=== PATIENT | female | born 1930 | race Caucasian/White ===

== ENCOUNTER 2016-07-16 17:48 | Inpatient (IN) ==
--- NOTE | 2016-07-16 18:07 | Emergency Department Note ---
Abdominal Pain HPI - General Chief Complaint: Abdominal Pain Stated Complaint: Abdominal pain Time Seen by Provider: 07/16/16 18:02 Source: patient Mode of arrival: ambulatory Limitations: no limitations - History of Present Illness HPI Narrative: This patient has had abdominal pain for the last 24 hours. It is very sharp and painful through the night but that has improved somewhat she wonders if she is constipated. No nausea or vomiting and doesn't feel any pain in her back. MD Complaint: abdominal pain Onset (ago): hour(s) Consistency: intermittent Location: RUQ, epigastric Severity: moderate Quality: cramping, stabbing Radiation: none Migration to: no migration Improves with: nothing Worsens with: nothing - Related Data Home Medications Medication Instructions Recorded Confirmed Unobtainable [Unobtainable] 07/16/16 07/16/16 Allergies Allergy/AdvReac Type Severity Reaction Status Date / Time No Known Intolerances Allergy Unknown N/A Verified 07/16/16 17:51 Review of Systems Constitutional: Denies: fever Eyes: Denies: eye pain ENT ED: Denies: ear pain Cardiovascular: Denies: chest pain Respiratory: Denies: cough Gastrointestinal: Reports: abdominal pain, constipation. Denies: nausea, vomiting, diarrhea Genitourinary: Denies: urgency Musculoskeletal: Denies: back pain Integumentary: Denies: rash Neurological: Denies: headache Abdominal Pain PMH - Past Medical History Medical history: Reports: hypertension Surgical history ED: Reports: hip replacement Physical Exam - General Limitations: no limitations General appearance: alert - Head Head exam: atraumatic - Eye Eye exam: Present: normal appearance - ENT ENT exam: normal exam - Neck Neck exam: Present: normal inspection - Chest Chest inspection: Present: normal inspection - Respiratory Respiratory exam: Present: normal lung sounds bilaterally - Cardiovascular Cardiovascular exam: Present: regular rate, normal rhythm, normal heart sounds - Abdominal Exam Abdominal exam: Present: tenderness, hypoactive bowel sounds. Absent: soft, distention, guarding, rebound, rigidity Abdominal tenderness: Present: RUQ, epigastrium - Neurological Exam Neurological exam: Present: alert - Psychiatric Psychiatric exam: Present: normal affect - Skin Skin exam: Present: warm, dry Course Vital Signs Temperature 98.2 F 07/16/16 17:48 Pulse Rate 107 H 07/16/16 17:48 Respiratory Rate 20 07/16/16 17:48 Blood Pressure 112/68 07/16/16 17:48 Pulse Oximetry (%) 95 07/16/16 17:48 Temperature 98.2 F 07/16/16 17:48 Pulse Rate 94 H 07/16/16 20:04 Respiratory Rate 20 07/16/16 17:48 Blood Pressure 134/53 07/16/16 20:04 Pulse Oximetry (%) 93 07/16/16 20:04 Abdominal Pain - MDM Narrative Medical decision making narrative: I discussed the case with Dr. Vick and she will be admitted to the hospital and treated with Zosyn - Lab Data Lab results reviewed: Yes I reviewed the patient's lab results. Result diagrams: 07/16/16 18:31 07/16/16 18:31 Lab Results 07/16/16 07/16/16 07/16/16 Range/Units 18:17 18:31 18:31 WBC 19.3 H (4.5-11.0) K/mcL RBC 4.74 (4.00-5.20) M/mcL Hgb 12.7 (12.0-15.0) g/dL Hct 39.2 (36.0-48.0) % MCV 82.6 (80.0-100.0) fL MCH 26.8 (26.0-34.0) pg MCHC 32.4 (31.0-36.0) g/dL RDW 16.8 H (11.5-14.5) % Plt Count 282 (140-440) K/mcL MPV 8.1 (7.4-10.4) fL Gran % 92.4 H (38.0-78.0) % Lymph % (Auto) 3.8 L (15.5-49.0) % [place]ham % (Auto) 3.8 (1.0-9.0) % Eos % (Auto) 0 (0.0-7.0) % Baso % (Auto) 0 (0.0-2.0) % Gran # 17.9 H (1.8-8.0) K/mcL Lymph # 0.7 L (1.5-4.8) K/mcL Dillingham # 0.7 (0.1-0.9) K/mcL Eos # 0 (0.0-0.7) K/mcL Baso # 0 (0.0-0.3) K/mcL Sodium 126 L (133-145) mmol/L Potassium 3.6 (3.3-5.1) mmol/L Chloride 89 L (96-108) mmol/L Carbon Dioxide 21 L (22-30) mmol/L Anion Gap 16.0 (8-16) BUN 13 (8-23) mg/dl Creatinine 0.9 (0.6-1.1) mg/dl GFR Calculation 58 Glucose 140 H (70-105) mg/dL Calcium 9.2 (8.6-10.4) mg/dl Total Bilirubin 1.1 H (0.0-1.0) mg/dL AST 13 (0-37) U/l ALT 7 (0-40) U/l Alkaline Phosphatase 71 (39-117) U/L Total Protein 6.8 (5.9-8.4) gm/dL Albumin 3.9 (3.2-5.2) gm/dL Globulin 2.9 (2.2-3.7) gm/dL Albumin/Globulin Ratio 1.3 (1.0-2.3) Lipase 17 (7-60) U/L Urine Color Yellow Urine Appearance Clear Urine pH 6.0 (5.0-9.0) Ur Specific Johnston 1.024 (1.000-1.035) Urine Protein 100 A (NEG) mg/dL Urine Glucose (UA) Negative (NEG) mg/dL Urine Ketones 20 A (NEG) mg/dL Urine Occult Blood 0.2 A (<0.03) mg/dL Urine Nitrate Neg (NEG) Urine Bilirubin Neg (NEG) mg/dL Urine Urobilinogen Neg (NEG) mg/dL Ur Leukocyte Esterase Neg (NEG) /uL Urine RBC 17 H (0-1) /hpf Urine WBC 2 (0-4) /hpf Ur Squamous Epith Cells < 1 (0-4) /hpf Ur Transition Epith Cell < 1 (0-2) /hpf Urine Bacteria 0 (0) /hpf Hyaline Casts 3 H (0-2) /lpf Urine Mucus Many A (0) /hpf Ur Culture Indicated? No - Radiology Data Radiology results reviewed: Yes I reviewed the patient's radiology results. (cT scan shows cholecystitis with thickened gallbladder wall and stones) Disposition Clinical Impression: Cholecystitis Disposition: Xfer As Inpt ([facility]) Condition: Good Referrals: Yvonne Monae MD [Primary Care Provider] - Time of Disposition: 20:37
[2016-07-16 19:09] LABS: Basophils # (Auto) 0 K/mcL (0.0-0.3); Basophils % (Auto) 0 % (0.0-2.0); Eosinophils # (Auto) 0 K/mcL (0.0-0.7); Eosinophils % (Auto) 0 % (0.0-7.0); Granulocytes % (Auto) 92.4 % (38.0-78.0); Lymphocytes # (Auto) 0.7 K/mcL (1.5-4.8); Lymphocytes % (Auto) 3.8 % (15.5-49.0); Mean Cell Volume 82.6 fL (80.0-100.0); Mean Corpuscular HGB Conc 32.4 g/dL (31.0-36.0); Mean Corpuscular Hemoglobin 26.8 pg (26.0-34.0); Monocytes # (Auto) 0.7 K/mcL (0.1-0.9); Monocytes % (Auto) 3.8 % (1.0-9.0); Platelet Count 282 K/mcL (140-440); RBC 4.74 M/mcL (4.00-5.20); Red Cell Distribution Width 16.8 % (11.5-14.5)
[2016-07-16 19:15] LABS: Appearance,Urine CLEAR; Bacteria,Urine 0 /hpf (0); Bilirubin,Urine NEG (NEG); Color,Urine YELLOW; Glucose,Urine (UA) NEGATIVE (NEG); Leukocyte Esterase,Urine NEG /uL (NEG); Mucus,Urine MANY /hpf (0); Nitrate,Urine NEG (NEG); Protein,Urine 100 mg/dL (NEG); Specific Gravity,Urine 1.024 (1.000-1.035); Urine Blood 0.2 mg/dL (<0.03); Urine Hyaline Cast 3 /lpf (0-2); Urine RBC 17 /hpf (0-1); Urine Squamous Epithelial Cell < 1 /hpf (0-4); Urine Transitional Epi Cells < 1 /hpf (0-2); Urine WBC 2 /hpf (0-4); Urobilinogen,Urine NEG (NEG)
[2016-07-16] MEDS ORDERED: 0.9 % SODIUM CHLORIDE 1,000 ML IV ONE (19:19)
[2016-07-16 19:30] LABS: ALT/SGPT 7 U/l (0-40); Albumin 3.9 gm/dL (3.2-5.2); Albumin/Globulin Ratio 1.3 (1.0-2.3); Alkaline Phosphatase 71 U/L (39-117); Blood Urea Nitrogen 13 mg/dl (8-23); Lipase 17 U/L (7-60)
[2016-07-16] MEDS ORDERED: ONDANSETRON 4 MG/2 ML VIAL IV PRN (20:37)
[2016-07-16] MEDS ORDERED: PIPERACILLIN SODIUM/TAZOBACTAM 3.375 GM in DEXTROSE 5% IN WATER 50 ML IV SCH (20:45)
[2016-07-16] MEDS: 0.9 % SODIUM CHLORIDE 1,000 ML IV SCH (21:45)
[2016-07-16] MEDS: PIPERACILLIN SODIUM/TAZOBACTAM 3.375 GM in DEXTROSE 5% IN WATER 50 ML IV SCH (21:45)
[2016-07-17] MEDS ORDERED: PIPERACILLIN SODIUM/TAZOBACTAM 3.375 GM VIAL IV ONE (03:42)
[2016-07-17] MEDS: PIPERACILLIN SODIUM/TAZOBACTAM 3.375 GM in DEXTROSE 5% IN WATER 50 ML IV SCH ×5 (03:47→16:38)
[2016-07-17] MEDS: 0.9 % SODIUM CHLORIDE 1,000 ML IV SCH ×5 (05:24→22:47)
--- NOTE | 2016-07-17 08:24 | XRay Report ---
CLINICAL INFORMATION: Pain COMPARISON: None. FINDINGS: Small hiatal hernia is noted. The stool gas pattern is unremarkable. There is no free air, abnormal soft tissue mass, organomegaly or pathologic calcification. IMPRESSION: Small hiatal hernia - otherwise negative Interpreted and Authenticated by: Aristeo Katz 07/17/16
--- NOTE | 2016-07-17 08:30 | XRay Report ---
CLINICAL INFORMATION: Preop COMPARISON: None. FINDINGS: Small hiatal hernia is noted. The remainder of the cardiomediastinal silhouette and pulmonary vasculature are normal. Lungs are clear. No effusions. Minimal old compression fractures noted in the mid thoracic spine IMPRESSION: Small hiatal hernia. No acute cardiac pulmonary disease Interpreted and Authenticated by: Aristeo Katz 07/17/16
--- NOTE | 2016-07-17 09:45 | Cat Scan Report ---
CLINICAL INFORMATION: Right flank pain COMPARISON: None. TECHNIQUE: 2.5 mm helical slices were obtained from the mid heart through the subtrochanteric regions. Following reconstruction, 2.5 mm sagittal, coronal and axial reformatted images were processed and reviewed at bone, lung and soft tissue windows. FINDINGS: Mild atelectasis in the right base - remainder of the lungs are clear. No effusions. Moderate size hiatal hernia is noted. The visualized heart is unremarkable. Images through the abdomen show the noncontrasted liver is unremarkable without focal hepatic lesions. The gallbladder is mildly enlarged and there is marked wall thickening, pericholecystic fluid with a few small stones in the gallbladder. Findings are compatible with cholecystitis. Intrahepatic and common bile ducts are normal caliber - CBD is 5 mm. Both noncontrasted kidneys, adrenal glands, spleen, pancreas and aorta are normal in size, configuration and attenuation without focal lesion. A tiny amount of free fluid is noted deep true pelvis likely due to cholecystitis. Images should the pelvis show urinary bladder to be unremarkable. Normal-appearing postmenopausal uterus noted is poorly visualized due to beam heart artifact from left hip prostheses. Multiple diverticuli noted, but the remainder of the colon small bowel and stomach are normal. A tiny periumbilical hernia containing only mesenteric fat. Bone windows show no osseous abnormality IMPRESSION: 1. Acute cholecystitis 2. Sigmoid diverticulosis, but no evidence of diverticulitis 3. Both noncontrasted kidneys, upper collecting systems and ureters and urinary bladder are grossly normal. It is understood the patient has hematuria. For persistent hematuria, suggest standard CT IVP with contrast to exclude small tumors or other pathology which may be occult on noncontrast CT study 4. Moderate-sized hiatal hernia Interpreted and Authenticated by: Aristeo Katz 07/17/16
--- NOTE | 2016-07-17 11:01 | General Surg History&Physical ---
History of Present Illness Patient information: Note initiated : 07/17/16 at 10:57 am Service Date, if different from initiated Date: [] Patient: Yolanda Castillo 85 y/o F admitted on 07/16/16 for Abdominal pain. Chief Complaint: [] HPI: Ms. Castillo is a 85 year old female admitted with acute cholecystitis. The patient had acute onset of abdominal pain about 10 PM 3 days prior to admission. The pain was epigastric and moved to the right upper quadrant. It continued for the rest of the night and most of the day. She took over-the- counter medications including laxatives without relief. She developed fever but did not have chills. She finally came to the emergency room on yesterday where it was note with a white count of 19,000. CT of the abdomen revealed a markedly thickened gallbladder with stones with pericholecystic fluid and a normal common bile duct. Her LFTs are normal. She has been treated with antibiotics overnight but still remains severely symptomatic and is still febrile She is counseled for urgent cholecystectomy. + Review of Systems - Constitutional fever(s), headache(s), malaise, weakness, weight loss - EENT Eyes: right: diplopia Nose, mouth and throat: abnormal hearing, headache(s), vertigo - Cardiovascular dyspnea on exertion, irregular heart rhythm, palpatations, rapid heart rate - Respiratory dyspnea on exertion, no cough, no wheezing, no stridor, no chest congestion - Gastrointestinal abdominal pain, change in bowel habits, constipation, heartburn, hematochezia, nausea, vomiting - Genitourinary Genitourinary: nocturia, urinary incontinence - Musculoskeletal arthralgias, back pain, stiffness - Integumentary no bleeding lesions, no changing lesions, no rash - Neurological abnormal hearing, headache(s), loss of vision, sensory deficit, no convulsions, no other visual disturbances - Psychiatric memory loss, no anxiety, no confusion, no depression - Endocrine fatigue, palpitations - Hematologic/Lymphatic easy bleeding, easy bruising, lymphadenopathy - Allergic/Immunologic tongue swelling, throat swelling, uticaria, wheezing, lip swelling Past History Past medical history: hypertension Gastroesophageal reflux disease 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 Past surgical history: left total hip arthroplasty 2006 Stenting of right carotid artery aneurysm 2006 Past family history: mother age 45 due to complications of breast cancer Father age 87 due to heart attack Sister with coronary artery disease Sister with breast cancer Past social history: no tobacco use since 1977 Occasional glass of wine No drug use Medications and Allergies Home Medications Medication Instructions Recorded Confirmed Type Clopidogrel Bisulfate [Plavix] 75 mg PO DAILY 07/17/16 07/17/16 History Lisinopril [Zestril] 20 mg PO DAILY 07/17/16 07/17/16 History Pantoprazole [Protonix] 40 mg PO DAILY 07/17/16 07/17/16 History Pravastatin Sodium 10 mg PO HS 07/17/16 07/17/16 History Allergies Allergy/AdvReac Type Severity Reaction Status Date / Time No Known Intolerances Allergy Unknown N/A Verified 07/16/16 17:51 Exam Temp Pulse Resp BP Pulse Ox 100.0 F H 92 H 16 138/72 95 07/17/16 06:48 07/17/16 06:48 07/17/16 06:48 07/17/16 06:48 07/17/16 06:48 - General physical appearance well developed, well nourished, no distress, chronically ill - Eyes PERRL, loss of movement, other (ptosis right eye with diplopia) left ptosis ( and third nerve palsy) - ENT normal pinna, normal nares, normal mucosa, no hearing loss, no congestion, decreased hearing - Head Head exam IM: Present: atraumatic, normocephalic - Neck no masses, no bruits, trachea midline, no lymphadectomy, no venous distension - Cardiovascular Cardiovascular exam IM: Present: normal rate and rhythm, irregular rhythm, +S1, +S2, systolic murmur, tachycardia Intensity IM: 2/6 - Respiratory normal expansion, normal respiratory effort, clear to percussion, clear to auscultation - Abdomen Abdomen: Present: soft, tender (tenderness in epigastrium and right upper quadrant with guarding), bowel sounds, guarding Hernia: Present: none - Integumentary Present: no rash, no growths, no abnormal pigmentation - Neurologic Present: normal coordination, normal sensation - Musculoskeletal Present: normal gait, normal posture - Psychiatric Present: oriented to time, oriented to person, oriented to place, speech is normal, memory intact Assessment and Plan (1) Cholecystitis, acute with cholelithiasis patient counseled for urgent cholecystectomy which will be done today. She has already been on antibiotics. Her Plavix will not be stopped. Status: Acute (2) Hypertension Status: Acute (3) Gastroesophageal reflux disease Status: Acute
[2016-07-17] MEDS ORDERED: GLYCOPYRROLATE 0.2 MG/ML VIAL IV ONE (12:05)
[2016-07-17] MEDS ORDERED: fentaNYL 100 MCG/2 ML VIAL IV ONE (12:05)
[2016-07-17] MEDS ORDERED: ROCURONIUM 10 MG/ML ML IV ONE (12:05)
[2016-07-17] MEDS ORDERED: MIDAZOLAM 5 MG/5 ML VIAL IV ONE (12:05)
[2016-07-17] MEDS ORDERED: LIDOCAINE HCL/PF 100 MG/5 ML SYRINGE IV ONE (12:05)
[2016-07-17] MEDS ORDERED: NEOSTIGMINE 1 MG/ML VIAL IV ONE (12:05)
[2016-07-17] MEDS ORDERED: KETAMINE 100 MG/ML ML IV ONE (12:05)
[2016-07-17] MEDS ORDERED: PROPOFOL 200 MG/20 ML VIAL IV ONE (12:05)
[2016-07-17] MEDS ORDERED: PHENYLEPHRINE 10 MG/ML VIAL IV ONE (12:05)
[2016-07-17] MEDS ORDERED: ONDANSETRON 4 MG/2 ML VIAL IV ONE (12:05)
[2016-07-17] MEDS ORDERED: VERAPAMIL 2.5 MG/ML VIAL IV ONE (12:05)
[2016-07-17] MEDS ORDERED: IPRATROPIUM/ALBUTEROL 3 ML AMPUL.NEB NEB PRN (13:27)
[2016-07-17] MEDS ORDERED: LABETALOL 5 MG/ML ML IV PRN (13:27)
[2016-07-17] MEDS ORDERED: BENZOCAINE/MENTHOL 1 LOZENGE PO PRN (13:27)
[2016-07-17] MEDS ORDERED: MEPERIDINE 25 MG/ML SYRINGE IV PRN (13:27)
[2016-07-17] MEDS ORDERED: ePHEDrine 50 MG/ML AMPUL IV PRN (13:27)
[2016-07-17] MEDS ORDERED: ACETAMINOPHEN 120 MG SUPP.RECT PR ONE (13:27)
[2016-07-17] MEDS ORDERED: PROMETHAZINE 25 MG/ML VIAL IV PRN (13:27)
[2016-07-17] MEDS: fentaNYL 100 MCG/2 ML VIAL IV PRN ×4 (13:45→14:21)
--- NOTE | 2016-07-17 13:56 | Brief Operative Note ---
Date of procedure: 07/17/16 Pre-op diagnosis: acute cholecystitis with cholelithiasis Post-op diagnosis: other (acute gangrenous cholecystitis with cholelithiasis) Procedure: laparoscopic cholecystectomy Grafts/Implants: No (ximena drain x2 in subhepatic space) Anesthesia: GETA Findings: severe gangrenous inflammation of gallbladder with wall necrosis Complications: none Surgeon: Trang Vick Estimated blood loss (cc): 100 Specimens Removed/Pathology: other (gallbladder) Condition: stable Disposition: PACU
[2016-07-17] MEDS ORDERED: ONDANSETRON 4 MG/2 ML VIAL IV PRN (14:41)
[2016-07-17] MEDS: HYDROmorphone 2 MG/ML SYRINGE IV PRN ×2 (15:56→21:30)
[2016-07-17] MEDS: PANTOPRAZOLE 40 MG PACKET PO SCH (16:38)
[2016-07-18] MEDS: 0.9 % SODIUM CHLORIDE 1,000 ML IV SCH ×4 (00:25→17:00)
[2016-07-18] MEDS: PIPERACILLIN SODIUM/TAZOBACTAM 3.375 GM in DEXTROSE 5% IN WATER 50 ML IV SCH ×4 (00:25→20:00)
[2016-07-18] MEDS: HYDROmorphone 2 MG/ML SYRINGE IV PRN (05:01)
[2016-07-18 06:09] LABS: Blood Urea Nitrogen 9 mg/dl (8-23)
[2016-07-18] MEDS: PANTOPRAZOLE 40 MG PACKET PO SCH ×2 (07:08→17:00)
[2016-07-18] MEDS: ACETAMINOPHEN 1,000 MG/100 ML BOTTLE IV PRN (07:37)
[2016-07-18 07:38] LABS: Basophils # (Auto) 0 K/mcL (0.0-0.3); Basophils % (Auto) 0.3 % (0.0-2.0); Eosinophils # (Auto) 0 K/mcL (0.0-0.7); Eosinophils % (Auto) 0.1 % (0.0-7.0); Granulocytes % (Auto) 83.2 % (38.0-78.0); Lymphocytes # (Auto) 0.7 K/mcL (1.5-4.8); Lymphocytes % (Auto) 9.6 % (15.5-49.0); Mean Cell Volume 82.6 fL (80.0-100.0); Mean Corpuscular HGB Conc 32.5 g/dL (31.0-36.0); Mean Corpuscular Hemoglobin 26.8 pg (26.0-34.0); Monocytes # (Auto) 0.5 K/mcL (0.1-0.9); Monocytes % (Auto) 6.8 % (1.0-9.0); Platelet Count 166 K/mcL (140-440); RBC 3.16 M/mcL (4.00-5.20)
[2016-07-18] MEDS ORDERED: LISINOPRIL 20 MG TABLET PO SCH (09:00)
[2016-07-18] MEDS ORDERED: 0.9 % SODIUM CHLORIDE 250 ML IV SCH (09:15)
[2016-07-18] MEDS: LISINOPRIL 20 MG TABLET PO SCH (12:48)
[2016-07-18] MEDS ORDERED: FUROSEMIDE 20 MG/2 ML VIAL IV ONE (16:45)
--- NOTE | 2016-07-18 17:36 | General Surgery Progress Note ---
Subjective Patient reports: feels better, still having pain, pain is less, tolerating liquids well, flatus, no bowel movement, afebrile Narrative: Note initiated : 07/18/16 at 5:34 pm Service Date, if different from initiated Date: [] Patient: Yolanda Castillo 85 y/o F admitted on 07/16/16 for Abdominal Pain/Acute Cholecystitis. Chief Complaint: [the patient is improved Her pain is much better She has had some problems with voiding and as needed intermittent catheterization. Her hemoglobin has drifted down so she was given FFP and 2 units packed red cells today. She is otherwise stable.] Objective Temp Pulse Resp BP Pulse Ox 97.9 F 58 L 18 116/73 92 07/18/16 16:00 07/18/16 16:00 07/18/16 16:00 07/18/16 16:00 07/18/16 16:00 - Additional Data Intake & Output - Last 24 hours: Intake & Output 07/16/16 07/17/16 07/18/16 07/19/16 05:59 05:59 05:59 05:59 Intake Total 1050 / 2050 4140 / 4140 1200 / 1200 Output Total 230 / 230 30 / 30 Balance 1050 / 2050 3910 / 3910 1170 / 1170 Weight 153 lb 154 lb 8 oz 154 lb 8 oz - General physical appearance no distress - Eyes PERRL - ENT no congestion - Neck no venous distension - Respiratory clear to auscultation - Cardiovascular Cardiovascular exam: Present: normal rate and rhythm, RRR, +S1, +S2 - Abdomen tender, bowel sounds, distended (no distention; good active bowel sounds) - Neurologic normal coordination, normal sensation - Musculoskeletal normal gait, normal posture - Psychiatric oriented to time, oriented to person, oriented to place, speech is normal, memory intact - Labs 07/18/16 06:13 07/18/16 04:25 Diabetes panel 07/18/16 Range/Units 04:25 Sodium 136 (133-145) mmol/L Potassium 3.3 (3.3-5.1) mmol/L Chloride 100 (96-108) mmol/L Carbon Dioxide 22 (22-30) mmol/L BUN 9 (8-23) mg/dl Creatinine 0.7 (0.6-1.1) mg/dl Glucose 111 H (70-105) mg/dL Calcium 8.0 L (8.6-10.4) mg/dl Calcium panel 07/18/16 Range/Units 04:25 Calcium 8.0 L (8.6-10.4) mg/dl Pituitary panel 07/18/16 Range/Units 04:25 Sodium 136 (133-145) mmol/L Potassium 3.3 (3.3-5.1) mmol/L Chloride 100 (96-108) mmol/L Carbon Dioxide 22 (22-30) mmol/L BUN 9 (8-23) mg/dl Creatinine 0.7 (0.6-1.1) mg/dl Glucose 111 H (70-105) mg/dL Calcium 8.0 L (8.6-10.4) mg/dl Adrenal panel 07/18/16 Range/Units 04:25 Sodium 136 (133-145) mmol/L Potassium 3.3 (3.3-5.1) mmol/L Chloride 100 (96-108) mmol/L Carbon Dioxide 22 (22-30) mmol/L BUN 9 (8-23) mg/dl Creatinine 0.7 (0.6-1.1) mg/dl Glucose 111 H (70-105) mg/dL Calcium 8.0 L (8.6-10.4) mg/dl Medical - PN: A/P - Time Spent With Patient Total time spent is greater than 50% in coordination of care (as documented) at patient's floor/unit and/or counseling patient: (1) Cholecystitis, acute with cholelithiasis Status: Acute Assessment and plan: Romero catheter for urinary retention Check hemoglobin in the morning Continue on antibiotic therapy Current Visit: Yes (2) Hypertension Status: Acute Current Visit: Yes (3) Gastroesophageal reflux disease Status: Acute Current Visit: Yes (4) Postoperative anemia due to acute blood loss Status: Acute Current Visit: Yes
[2016-07-19] MEDS: PIPERACILLIN SODIUM/TAZOBACTAM 3.375 GM in DEXTROSE 5% IN WATER 50 ML IV SCH ×5 (00:11→23:36)
[2016-07-19] MEDS: ACETAMINOPHEN 1,000 MG/100 ML BOTTLE IV PRN (02:33)
[2016-07-19] MEDS: 0.9 % SODIUM CHLORIDE 1,000 ML IV SCH ×2 (05:52→14:07)
[2016-07-19] MEDS: PANTOPRAZOLE 40 MG PACKET PO SCH ×2 (08:56→18:14)
[2016-07-19] MEDS: LISINOPRIL 20 MG TABLET PO SCH (08:57)
--- NOTE | 2016-07-19 11:23 | Surgical Pathology Report ---
HISTOLOGY SPECIMEN MICROSCOPIC DIAGNOSIS GALLBLADDER, CHOLECYSTECTOMY: -- NECROTIZING ACUTE AND CHRONIC CHOLECYSTITIS. (DMT:[facility]) PROCEDURAL IMPRESSION Acute cholecystitis. GROSS DESCRIPTION Received in formalin labeled gallbladder, is an 8.0 x 5.0 by up to 1.4 cm purple-chung gallbladder. The surface is smooth and glistening with areas of thickened yellow-gutierrez possible exudate. There are several metal clips present including one on the possible duct. The mucosa is gutierrez-brown to bright red and spongy in appearance with areas of yellow plaque-like material. The wall is up to 0.8 cm thick. No stones or gross lesions are identified. Generating Station Mechanic sections submitted - two cassettes. (STM:[facility]) Electronically Signed by: Law Carrington M.D.
[2016-07-19 13:04] LABS: Basophils # (Auto) 0 K/mcL (0.0-0.3); Basophils % (Auto) 0.2 % (0.0-2.0); Eosinophils # (Auto) 0.1 K/mcL (0.0-0.7); Eosinophils % (Auto) 1.7 % (0.0-7.0); Granulocytes % (Auto) 77.8 % (38.0-78.0); Lymphocytes # (Auto) 0.5 K/mcL (1.5-4.8); Lymphocytes % (Auto) 11.8 % (15.5-49.0); Mean Cell Volume 85.3 fL (80.0-100.0); Mean Corpuscular HGB Conc 32.8 g/dL (31.0-36.0); Mean Corpuscular Hemoglobin 27.9 pg (26.0-34.0); Monocytes # (Auto) 0.4 K/mcL (0.1-0.9); Monocytes % (Auto) 8.5 % (1.0-9.0); Platelet Count 152 K/mcL (140-440); RBC 3.65 M/mcL (4.00-5.20)
[2016-07-19] MEDS ORDERED: BISACODYL 10 MG SUPP.RECT PR PRN (14:30)
--- NOTE | 2016-07-19 14:34 | General Surgery Progress Note ---
Subjective Patient reports: feels better, pain is less, tolerating liquids well, flatus, no bowel movement, afebrile Narrative: Note initiated : 07/19/16 at 2:32 pm Service Date, if different from initiated Date: [] Patient: Yolanda Castillo 85 y/o F admitted on 07/16/16 for Abdominal Pain/Acute Cholecystitis. Chief Complaint: [PATIENT IS DOING WELL AND HAS NO COMPLAINTS.HER PAIN IS WELL CONTROLLED. SHE DENIES NAUSEA. sHE HAS HAD FLATUS BUT NO BOWEL MOVEMENT. sHE REQUESTS THAT HER DIET BE ADVANCED. hER BLEEDING HAS CEASEDAND SHEIS DRAINING LESS THAN 50 CC PER DAY AND HER jpS.] Objective Temp Pulse Resp BP Pulse Ox 98.3 F 56 L 16 149/67 94 07/19/16 11:08 07/19/16 11:08 07/19/16 11:08 07/19/16 11:08 07/19/16 11:08 - Additional Data Intake & Output - Last 24 hours: Intake & Output 07/17/16 07/18/16 07/19/16 07/20/16 05:59 05:59 05:59 05:59 Intake Total 1049 / 2049 4140 / 4140 3571 / 3571 1900 / 1900 Output Total 230 / 230 2850 / 2850 365 / 365 Balance 1049 / 0 3910 / 3910 721 / 721 1535 / 1535 Weight 153 lb 154 lb 8 oz 155 lb - General physical appearance well developed, well nourished, no distress, severe distress - ENT no congestion - Neck no venous distension - Respiratory clear to auscultation - Cardiovascular Cardiovascular exam: Present: normal rate and rhythm, RRR, +S1, +S2 - Abdomen soft, non tender, bowel sounds (MILD ABDOMINAL DISTENTION WITH GOOD ACTIVE BOWEL SOUNDS. aBDOMEN IS NONTENDER), distended - Integumentary no rash, no growths, no abnormal pigmentation - Neurologic normal coordination, normal sensation - Psychiatric oriented to time, oriented to person, oriented to place, speech is normal - Labs 07/19/16 12:15 07/18/16 04:25 Medical - PN: A/P - Time Spent With Patient Total time spent is greater than 50% in coordination of care (as documented) at patient's floor/unit and/or counseling patient: (1) Cholecystitis, acute with cholelithiasis Status: Acute Assessment and plan: wILL dc Garcia CATHETER. sALINE LOCK iv aDVANCED TO A REGULAR DIET aRRANGE FOR DISCHARGE HOME OR PLACEMENT Current Visit: Yes (2) Hypertension Status: Acute Current Visit: Yes (3) Gastroesophageal reflux disease Status: Acute Current Visit: Yes (4) Postoperative anemia due to acute blood loss Status: Acute Current Visit: Yes
[2016-07-20] MEDS: PIPERACILLIN SODIUM/TAZOBACTAM 3.375 GM in DEXTROSE 5% IN WATER 50 ML IV SCH ×4 (05:21→23:29)
[2016-07-20 06:33] LABS: Basophils # (Auto) 0 K/mcL (0.0-0.3); Basophils % (Auto) 0.6 % (0.0-2.0); Eosinophils # (Auto) 0.1 K/mcL (0.0-0.7); Eosinophils % (Auto) 2.8 % (0.0-7.0); Granulocytes % (Auto) 71.7 % (38.0-78.0); Lymphocytes # (Auto) 0.8 K/mcL (1.5-4.8); Lymphocytes % (Auto) 15.8 % (15.5-49.0); Mean Cell Volume 84.6 fL (80.0-100.0); Mean Corpuscular HGB Conc 32.9 g/dL (31.0-36.0); Mean Corpuscular Hemoglobin 27.8 pg (26.0-34.0); Monocytes # (Auto) 0.5 K/mcL (0.1-0.9); Monocytes % (Auto) 9.1 % (1.0-9.0); Platelet Count 186 K/mcL (140-440); RBC 4.02 M/mcL (4.00-5.20); Red Cell Distribution Width 16.7 % (11.5-14.5)
[2016-07-20] MEDS: PANTOPRAZOLE 40 MG PACKET PO SCH ×2 (07:24→17:00)
[2016-07-20] MEDS: LISINOPRIL 20 MG TABLET PO SCH (10:35)
[2016-07-20] MEDS: 0.9 % SODIUM CHLORIDE 1,000 ML IV SCH ×2 (10:35→17:00)
--- NOTE | 2016-07-20 15:05 | General Surgery Progress Note ---
Subjective Patient reports: feels better, pain is less, tolerating a regular diet, flatus, bowel movement, afebrile Narrative: Note initiated : 07/20/16 at 3:03 pm Service Date, if different from initiated Date: [] Patient: Yolanda Castillo 85 y/o F admitted on 07/16/16 for Abdominal Pain/Acute Cholecystitis. Chief Complaint: [patient is doing well and has no complaints. Her JEFF drainage is more serou She is stable for discharge whenever her placement can be arranged.] Objective Temp Pulse Resp BP Pulse Ox 98.0 F 60 22 145/85 94 07/20/16 12:00 07/20/16 12:00 07/20/16 12:00 07/20/16 12:00 07/20/16 12:00 - Additional Data Intake & Output - Last 24 hours: Intake & Output 07/18/16 07/19/16 07/20/16 07/21/16 05:59 05:59 05:59 05:59 Intake Total 4140 / 4140 3571 / 3571 2843 / 2843 50 / 50 Output Total 230 / 230 2850 / 2850 2650 / 2650 2325 / 2325 Balance 3910 / 3910 721 / 721 193 / 193 -2275 / -2275 Weight 154 lb 8 oz 155 lb 154 lb 8 oz - General physical appearance no distress, no pain - ENT no congestion - Neck no venous distension - Respiratory clear to auscultation - Cardiovascular Cardiovascular exam: Present: normal rate and rhythm, RRR, +S1, +S2. Absent: JVD - Abdomen soft, non tender (bdomen is benign) - Integumentary no rash, no growths, no abnormal pigmentation - Psychiatric oriented to time, oriented to person, oriented to place, speech is normal, memory intact - Labs 07/20/16 05:25 07/18/16 04:25 Medical - PN: A/P - Time Spent With Patient Total time spent is greater than 50% in coordination of care (as documented) at patient's floor/unit and/or counseling patient: (1) Cholecystitis, acute with cholelithiasis Status: Acute Assessment and plan: patient is stable except for retention. We'll try to get Dr. Betts to evaluate her before discharge tomorrow. In the meantime we will place silicone catheter for potential long-term urinary drainage. Current Visit: Yes (2) Hypertension Status: Acute Current Visit: Yes (3) Gastroesophageal reflux disease Status: Acute Current Visit: Yes (4) Postoperative anemia due to acute blood loss Status: Acute Current Visit: Yes
--- NOTE | 2016-07-20 15:10 | Discharge Summary ---
Providers - Providers Patient information: Note initiated : 07/20/16 at 3:07 pm Service Date, if different from initiated Date: [] Patient: Yolanda Castillo 85 y/o F admitted on 07/16/16 for Abdominal Pain/Acute Cholecystitis. Chief Complaint: [] Date of admission: 07/16/16 Discharge date: 07/21/16 Attending physician: Trang Vick urology Hospitalization Hospital course: 85-year-old female admitted on 16 July with acute severe cholecystitis She was operated on onthe same day and was found to have acute gangrenous cholecystitis. She was on Plavix and with the Acute inflammation she had major blood loss requiring postoperative transfusion. Her JEFF drains now have serosanguineous drainage and her hemoglobin is stable. She has had good return of intestinal activity and is stable for discharge home when arranged. Discharge diagnosis: acute gangrenous cholecystitis Secondary discharge diagnosis: perioperative blood loss with blood loss anemia Urinary retention Reason for admission: acute cholecystitis Procedures: laparoscopic cholecystectomy Complications: perioperative blood loss due to infection and Plavix therapy Exam Temp Pulse Resp BP Pulse Ox 98.0 F 60 22 145/85 94 07/20/16 12:00 07/20/16 12:00 07/20/16 12:00 07/20/16 12:00 07/20/16 12:00 - General physical appearance well developed, well nourished, no distress - Eyes normal ocular movement, deviation, loss of movement left ptosis - ENT normal pinna, normal nares, normal mucosa, no hearing loss, no congestion - Head Head exam IM: Present: atraumatic, normocephalic - Neck no masses, no bruits, trachea midline, no lymphadectomy, no venous distension - Cardiovascular Cardiovascular exam IM: Present: normal rate and rhythm - Respiratory normal expansion, normal respiratory effort, clear to percussion, clear to auscultation - Abdomen Abdomen: Present: soft, tender, bowel sounds, distended (mildly distended abdomen with good active bowel sounds; tenderness in the perioperative area; JEFF drains with serosanguineous fluid) Hernia: Present: none - Integumentary Present: no rash, no growths, no abnormal pigmentation - Neurologic Present: normal coordination, normal sensation - Psychiatric Present: oriented to time, oriented to person, oriented to place, speech is normal, memory intact Discharge Plan - Patient/Caregiver Discharge Instructions Activity: increase activity as tolerated Diet: Regular Diet Prescriptions: Levofloxacin [Levaquin] 500 mg PO DAILY #10 tablet oxyCODONE/APAP [Percocet 5-325 mg] 1 tab PO Q4H PRN #30 tablet PRN Reason: Pain - Follow up Plan Follow up with: Trang Vick MD [Physician] - 07/26/16 9:15 am Yvonne Monae MD [Primary Care Provider] - Jermain Nunez MD [Physician] - 08/22/16 1:30 pm Disposition: Home, Self-Care Prognosis: Good Rehab Potential: Good I certify that the patient requires SNF services.: Yes Overall status at discharge: patient is not back to baseline Pending Studies Resuscitation Status Full Code Diet Regular Diet Start MonJul 19 Dinner Bisacodyl (Dulcolax) 10 mg [place] DAILYP PRN PRN Reason: Constipation Last Admin: 07/19/16 18:14 Dose: 10 mg Hydromorphone HCl (Dilaudid) 1 mg IV Q4HP PRN PRN Reason: Pain Last Admin: 07/18/16 05:01 Dose: 1 mg Admin: 07/17/16 21:30 Dose: 1 mg Admin: 07/17/16 15:56 Dose: 1 mg Piperacillin Sod/Tazobactam (Sod 3.375 gm/ Dextrose) 50 mls @ 100 mls/hr IV Q6H MARIA D Last Admin: 07/20/16 13:06 Dose: 100 mls/hr Infusion: 07/20/16 12:20 Dose: 0 mls/hr Admin: 07/20/16 05:21 Dose: 100 mls/hr Infusion: 07/20/16 00:06 Dose: 0 mls/hr Admin: 07/19/16 23:36 Dose: 100 mls/hr Infusion: 07/19/16 18:44 Dose: 100 mls/hr Admin: 07/19/16 18:14 Dose: 100 mls/hr Infusion: 07/19/16 12:30 Dose: 0 mls/hr Admin: 07/19/16 12:00 Dose: 100 mls/hr Infusion: 07/19/16 07:21 Dose: 0 mls/hr Admin: 07/19/16 05:52 Dose: 100 mls/hr Infusion: 07/19/16 00:41 Dose: 100 mls/hr Admin: 07/19/16 00:11 Dose: 100 mls/hr Infusion: 07/18/16 20:30 Dose: 100 mls/hr Admin: 07/18/16 20:00 Dose: 100 mls/hr Infusion: 07/18/16 14:00 Dose: 0 mls/hr Admin: 07/18/16 13:30 Dose: 100 mls/hr Infusion: 07/18/16 06:00 Dose: 100 mls/hr Admin: 07/18/16 05:30 Dose: 100 mls/hr Infusion: 07/18/16 00:55 Dose: 100 mls/hr Admin: 07/18/16 00:25 Dose: 100 mls/hr Infusion: 07/17/16 17:08 Dose: 100 mls/hr Admin: 07/17/16 16:38 Dose: 100 mls/hr Acetaminophen (Ofirmev) 1,000 mg in 100 mls @ 200 mls/hr IV Q6HP PRN PRN Reason: Pain Last Infusion: 07/19/16 07:22 Dose: 0 mls/hr Admin: 07/19/16 02:33 Dose: 200 mls/hr Infusion: 07/18/16 08:10 Dose: 0 mls/hr Admin: 07/18/16 07:37 Dose: 200 mls/hr Sodium Chloride (Sodium Chloride 0.9%) 1,000 mls @ 50 mls/hr IV .Q20H [facility] Last Admin: 07/20/16 10:35 Dose: Not Given Infusion: 07/19/16 17:19 Dose: 50 mls/hr Admin: 07/19/16 14:07 Dose: Not Given Admin: 07/19/16 05:52 Dose: 50 mls/hr Infusion: 07/19/16 05:52 Dose: 50 mls/hr Admin: 07/18/16 17:00 Dose: 50 mls/hr Lisinopril (Zestril) 20 mg PO DAILY [facility] Last Admin: 07/20/16 10:35 Dose: 20 mg Admin: 07/19/16 08:57 Dose: 20 mg Admin: 07/18/16 12:48 Dose: 20 mg Pantoprazole Sodium (Protonix) 40 mg PO BIDAC [facility] Last Admin: 07/20/16 07:24 Dose: 40 mg Admin: 07/19/16 18:14 Dose: 40 mg Admin: 07/19/16 08:56 Dose: 40 mg Admin: 07/18/16 17:00 Dose: 40 mg Admin: 07/18/16 07:08 Dose: 40 mg Admin: 07/17/16 16:38 Dose: 40 mg Shift Summary 07/20/16 04:51 Shift Summary by Tere Norman pleasantly forgetful at times. Has not required pain meds. Lap site X2 with abhi and tegaderm CDI. JEFF drain X2 with small amt of serosang drainage. OOB with FWW and one assist to BSC. Romero D/C'd yesterday around 1715. Pt has been voiding but continues to retain urine. Was straight cathed at 0005 for 550ml after PVR 573ml. Last PVR was 285ml at 0430. Cont to monitor. BM X2 yesterday after suppository given. HR magda in 50's. Needs enc to use IS. SpO2 91% RA. Denies SOB. Afebrile. Scheduled Zosyn Q6H. Plans to D/C to SNF today. Initialized on 07/20/16 04:51 - END OF NOTE
[2016-07-21] MEDS: PIPERACILLIN SODIUM/TAZOBACTAM 3.375 GM in DEXTROSE 5% IN WATER 50 ML IV SCH ×2 (05:12→11:56)
[2016-07-21] MEDS: 0.9 % SODIUM CHLORIDE 1,000 ML IV SCH (05:13)
[2016-07-21 06:51] LABS: Basophils # (Auto) 0 K/mcL (0.0-0.3); Basophils % (Auto) 0.5 % (0.0-2.0); Eosinophils # (Auto) 0.2 K/mcL (0.0-0.7); Eosinophils % (Auto) 4.6 % (0.0-7.0); Granulocytes % (Auto) 63.6 % (38.0-78.0); Lymphocytes # (Auto) 0.9 K/mcL (1.5-4.8); Lymphocytes % (Auto) 18.4 % (15.5-49.0); Mean Cell Volume 83.8 fL (80.0-100.0); Mean Corpuscular Hemoglobin 27.7 pg (26.0-34.0); Monocytes # (Auto) 0.6 K/mcL (0.1-0.9); Monocytes % (Auto) 12.9 % (1.0-9.0); Platelet Count 211 K/mcL (140-440); RBC 4.09 M/mcL (4.00-5.20); Red Cell Distribution Width 16.8 % (11.5-14.5)
[2016-07-21] MEDS: PANTOPRAZOLE 40 MG PACKET PO SCH (06:55)
[2016-07-21] MEDS: LISINOPRIL 20 MG TABLET PO SCH (08:29)
--- NOTE | 2016-07-25 18:08 | Operative Note ---
DATE OF OPERATION: 07/17/2016 PREOPERATIVE DIAGNOSIS: Acute cholecystitis with cholelithiasis. POSTOPERATIVE DIAGNOSIS: Acute gangrenous cholecystitis with cholelithiasis. PROCEDURE: Laparoscopic cholecystectomy. SURGEON: Trang Vikc MD. FINDINGS: Severe gangrenous inflammation of the gallbladder with multiple areas of wall necrosis. DESCRIPTION OF PROCEDURE: Under general anesthesia, the patient's abdomen was prepped and draped in the sterile field. A timeout procedure was carried out as per protocol. A supraumbilical incision was made and Veress needle was inserted. Abdomen was insufflated with 3 L of CO2. A 10 mm port was placed. The laparoscope was placed, and a severely inflamed gallbladder with a very thickened wall with areas of dark necrosis of the wall was encountered. There was acute inflammation with almost complete covering of the gallbladder with inflamed omentum. Under videoscopic guidance a 12 mm port was placed in the right subcostal region and two 5 mm ports were placed laterally. Using blunt dissection, the inflamed omentum was from the wall of the gallbladder. The gallbladder was then decompressed using a Weck needle. It was then grasped and positioned. There was significant necrosis. The cystic duct was dissected, followed onto the wall of the gallbladder. It was very thickened and could not hold clips. Cystic artery branches were severely inflamed but were followed onto the wall of the gallbladder, clipped with four clips each and divided. Once I was sure that the gallbladder was only tethered by the cystic duct, it was transected close to the gallbladder using STEVIE stapler. The gallbladder was then from the infrahepatic bed using blunt dissection. The wall of the gallbladder was very necrotic, and there was a moderate amount of bleeding that probably measured over 200 mL. The gallbladder was placed in an Endopouch and retrieved. Copious irrigation was carried out. An attempt was made to stop the bleeding with electrocautery, but this was not successful. More irrigation was carried out after which three large sheets of Surgicel were placed over the bed of the gallbladder and suctioned was placed against this. Once this was done, there was better hemostasis. The patient was monitored about 10 minutes more to make sure that the bleeding had decreased. The major problem was that the patient was still on Plavix. Once the bleeding had decreased, two JEFF drains were placed in the bed of the gallbladder and placed on suction. CO2 was allowed to escape from the abdomen, and the ports were removed. Fascia at the umbilicus was closed with 0 Vicryl. Skin incisions were closed with abhi. Drains were secured with 2-0 nylon. The patient tolerated the procedure well. She was hemodynamically stable. Dressings were placed. She was awakened, transferred to a bed and taken to the postanesthetic care unit in stable, satisfactory condition. LCS:seema Job ID: [id number] Doc ID: [id number] Trang Vick M.D.
== END 2016-07-21 13:48 | disposition home or self-care (01) | DRG 417 ==
LOC: ED 17:48 → MEDSUR 21:41
PROVIDERS: ADMIT Family Medicine Adult Medicine; ATTEND Family Medicine Adult Medicine